=== PATIENT | female | born 1960 | race Hispanic/Latino ===

== ENCOUNTER 2023-12-05 04:20 | Inpatient (IN) | payer SELFPAY ==
[2023-12-05] MEDS ORDERED: Ondansetron PF 4 MG/2 ML Vial IVP PRN (04:53)
[2023-12-05] MEDS ORDERED: Acetaminophen 650 MG Suppository PR PRN ×2 (04:53→09:30)
[2023-12-05] MEDS ORDERED: Acetaminophen 325 MG TAB PO PRN ×2 (04:53→09:30)
[2023-12-05 05:39] LABS: #Basophils 0.03 10x3/uL (0.0-0.2); %Basophils 0.2 % (0.0-1.0); %Eosinophils 0.9 % (0.0-10.0); %Lymphocytes 13.7 % (21.0-51.0); %Monocytes 6.7 % (0.0-10.0); %Neutrophils 77.8 % (42.0-75.0); Hematocrit 29.9 % (36.0-47.0); Hemoglobin 9.2 g/dL (12.0-16.0); Mean Corpuscular HGB CONC 30.8 g/dL (32.0-36.0); Mean Corpuscular Hemoglobin 27.1 pg (27.0-31.0); Mean Corpuscular Volume 88.2 fL (78.0-98.0); Mean Platelet Volume 11.6 fL (7.4-10.4); Platelet Count 288 10x3/uL (130-400); RBC Distribution Width 13.9 % (11.5-14.5); Red Blood Cell (RBC) Count 3.39 mill/uL (4.20-5.40)
[2023-12-05 06:15] LABS: Influenza A by NAA Not Detected (NotDetected); Influenza B by NAA Not Detected (NotDetected); RSV by NAA Not Detected (NotDetected); SARS-CoV-2 NAA Rapid Test DETECTED (NotDetected)
[2023-12-05 06:29] VITALS: BMI 32.5
[2023-12-05] MEDS: Lactated Ringer's 1,000 ML IV SCH (06:32)
[2023-12-05 06:53] LABS: Sodium 138 mmol/L (136-145)
[2023-12-05 06:54] LABS: Anion Gap 12 mmol/L (10-20); BUN (Urea Nitrogen) 33 mg/dL (9.8-20.1); Calc. Creatinine Clearance 31 mL/min (70-130); Calcium 8.4 mg/dL (7.8-10.44); Carbon Dioxide 20 mmol/L (23-31); Chloride 111 mmol/L (98-107); Estimated GFR 26; Glucose 93 mg/dL (80-115); Potassium 4.8 mmol/L (3.5-5.1)
[2023-12-05] MEDS ORDERED: Senokot S 8.6-50 MG TAB PO PRN (09:30)
[2023-12-05] MEDS ORDERED: Dextrose 50% Abboject 50 ML SYRINGE SLOW IVP PRN (09:30)
[2023-12-05] MEDS ORDERED: Albuterol 200 PUFF (6.7GM INHALER) INH PRN (09:30)
[2023-12-05] MEDS ORDERED: Calcium Carbonate 500 MG ChewTAB PO PRN (09:30)
[2023-12-05] MEDS ORDERED: Dextrose 5% in Water 1,000 ML IV PRN (09:30)
[2023-12-05] MEDS ORDERED: Glucagon 1 MG/ML KIT IM PRN (09:30)
[2023-12-05] MEDS ORDERED: Benzonatate 100 MG CAP PO PRN (09:30)
[2023-12-05] MEDS ORDERED: Insulin Lispro 100 UNIT/ML 10 ML VIAL SC PRN ×2 (09:49)
[2023-12-05] MEDS: Famotidine/PF 20 mg/2ml Vial SLOW IVP SCH (10:38)
[2023-12-05 10:39] LABS: CRP,High Sensitivity (Inhouse) 1.16 mg/dL (< or = 0.5)
[2023-12-05] MEDS: Famotidine 20 MG TAB PO SCH (10:39)
[2023-12-05 10:40] LABS: Magnesium 2.2 mg/dL (1.6-2.6)
[2023-12-05] MEDS: hydrALAZINE 25 MG TAB PO SCH ×2 (10:51→22:28)
[2023-12-05] MEDS: Ondansetron ODT 4 MG TAB PO PRN (22:37)
[2023-12-06 06:11] LABS: #Basophils 0.05 10x3/uL (0.0-0.2); %Basophils 0.4 % (0.0-1.0); %Eosinophils 1.7 % (0.0-10.0); %Lymphocytes 16.8 % (21.0-51.0); %Monocytes 8.4 % (0.0-10.0); Hematocrit 27.6 % (36.0-47.0); Hemoglobin 8.6 g/dL (12.0-16.0); Mean Corpuscular HGB CONC 31.2 g/dL (32.0-36.0); Mean Corpuscular Hemoglobin 27.7 pg (27.0-31.0); Mean Corpuscular Volume 88.7 fL (78.0-98.0); Mean Platelet Volume 11.9 fL (7.4-10.4); Platelet Count 298 10x3/uL (130-400); RBC Distribution Width 14.3 % (11.5-14.5); Red Blood Cell (RBC) Count 3.11 mill/uL (4.20-5.40)
[2023-12-06 06:23] LABS: Anion Gap 10 mmol/L (10-20); BUN (Urea Nitrogen) 24 mg/dL (9.8-20.1); Calc. Creatinine Clearance 40 mL/min (70-130); Calcium 8.3 mg/dL (7.8-10.44); Carbon Dioxide 20 mmol/L (23-31); Chloride 114 mmol/L (98-107); Estimated GFR 35; Glucose 94 mg/dL (80-115); Iron 45 ug/dL (50-170); Iron Binding Capacity, Total 169 mcg/dL (265-497); Potassium 5.3 mmol/L (3.5-5.1); Sodium 139 mmol/L (136-145)
[2023-12-06 06:50] LABS: Ferritin 197.9 ng/mL (10-291)
[2023-12-06] MEDS: Sodium Chloride 0.9% 500 ML IV SCH (08:39)
[2023-12-06] MEDS: Sodium Chloride 0.9% 1,000 ML IV SCH (08:39)
[2023-12-06] MEDS: Zinc Sulfate 220 MG CAP PO SCH (08:40)
[2023-12-06] MEDS: Cholecalciferol (Vitamin D3) 400 UNITS TAB PO SCH (08:41)
[2023-12-06] MEDS: Ascorbic Acid 500 mg Chewable Tablet PO SCH (08:42)
[2023-12-07 07:04] LABS: #Basophils 0.05 10x3/uL (0.0-0.2); %Basophils 0.5 % (0.0-1.0); %Eosinophils 1.6 % (0.0-10.0); %Lymphocytes 17.9 % (21.0-51.0); %Monocytes 7.8 % (0.0-10.0); %Neutrophils 71.7 % (42.0-75.0); Hematocrit 29.4 % (36.0-47.0); Hemoglobin 8.7 g/dL (12.0-16.0); Mean Corpuscular HGB CONC 29.6 g/dL (32.0-36.0); Mean Corpuscular Hemoglobin 27.4 pg (27.0-31.0); Mean Corpuscular Volume 92.5 fL (78.0-98.0); Mean Platelet Volume 11.4 fL (7.4-10.4); Platelet Count 235 10x3/uL (130-400); RBC Distribution Width 14.1 % (11.5-14.5); Red Blood Cell (RBC) Count 3.18 mill/uL (4.20-5.40)
[2023-12-07 07:18] LABS: Anion Gap 10 mmol/L (10-20); BUN (Urea Nitrogen) 18 mg/dL (9.8-20.1); Calc. Creatinine Clearance 43 mL/min (70-130); Calcium 8.5 mg/dL (7.8-10.44); Carbon Dioxide 21 mmol/L (23-31); Chloride 115 mmol/L (98-107); Estimated GFR 39; Glucose 101 mg/dL (80-115); Potassium 5.5 mmol/L (3.5-5.1); Sodium 140 mmol/L (136-145)
[2023-12-07] MEDS: Sodium Polystyrene Sulfonate 15 GM (60 mL) BOT PO SCH (09:17)
[2023-12-07] MEDS: Dextrose 5 %-0.45 % NaCl 1,000 ML IV SCH (11:02)
[2023-12-07] MEDS: Sodium Bicarbonate Tab 325 MG TAB PO SCH (11:05)
[2023-12-07 13:57] LABS: Campy jejuni + coli by PCR Negative (Negative); STEC Shiga Toxin 1+2 Negative (Negative); Salmonella spp. by PCR Negative (Negative); Shigella spp + EIEC by PCR Negative (Negative)
[2023-12-07 14:56] LABS: Anion Gap 11 mmol/L (10-20); BUN (Urea Nitrogen) 17 mg/dL (9.8-20.1); Calc. Creatinine Clearance 45 mL/min (70-130); Calcium 8.5 mg/dL (7.8-10.44); Carbon Dioxide 20 mmol/L (23-31); Chloride 113 mmol/L (98-107); Estimated GFR 41; Glucose 135 mg/dL (80-115); Sodium 139 mmol/L (136-145)
[2023-12-07 16:15] VITALS: BP 175/80; TEMP 98.3
== END 2023-12-07 18:51 | disposition home or self-care (01) | DRG 391 ==
LOC: SURG B 04:20 → OBSVTOIN 12-06 14:17
PROVIDERS: ADMIT Student in an Organized Health Care Education/Training Program; ATTEND Internal Medicine
PROC: 8E0ZXY6 Isolation (ICD-10-PCS; principal; 2023-12-06)
DX: A08.39 Other viral enteritis (principal); U07.1 COVID-19; N17.9 Acute kidney failure, unspecified; I10 Essential (primary) hypertension; F32.A Depression, unspecified; D64.9 Anemia, unspecified; E78.5 Hyperlipidemia, unspecified; E11.9 Type 2 diabetes mellitus without complications; Z79.899 Other long term (current) drug therapy; Z90.49 Acquired absence of other specified parts of digestive tract
CPT/HCPCS: 0241U; 36415; 36416; 80048; 82607; 82728; 83540; 83550; 83735; 85025; 85046; 86141; 87505; J7030; J7042; J7050; J7120; Q0162; S0028